=== PATIENT | male | born 1970 | race Caucasian/White ===

== ENCOUNTER 2018-12-25 13:34 | Emergency (ER) | payer OTHER ==
[~2018-12-25] VITALS: Ht 172.7 cm; Wt 100.2 kg
[2018-12-25 15:08] VITALS: BP 152/97
== END 2018-12-25 15:55 | disposition home or self-care (01) ==
LOC: ED 15:32
DX: E86.9 Volume depletion, unspecified (principal); E86.0 Dehydration; R42 Dizziness and giddiness; I10 Essential (primary) hypertension
CPT/HCPCS: 36415; 80048; 82040; 85025; 93005; 96360; 99284; J7030